=== PATIENT | female | born 1935 | race Caucasian/White ===

== ENCOUNTER → 2017-04-13 15:39 | Outpatient (CLI) | payer MEDICARE ==
[2017-04-13 16:26] LABS: APPEARANCE HAZY (CLEAR); BILIRUBIN NEGATIVE (NEGATIVE); COLOR YELLOW (YELLOW); GLUCOSE NEGATIVE (NEGATIVE); KETONE NEGATIVE (NEGATIVE); NITRITE NEGATIVE (NEGATIVE); PROTEIN TRACE mg/dL (NEGATIVE); UROBILINOGEN NORMAL (NORMAL)
[2017-04-13 16:28] LABS: BACTERIA MODERATE /hpf (NONE SEEN)
== END | disposition home or self-care (01) ==
LOC: D.LABREF 15:39
PROVIDERS: Family Medicine
DX: R41.0 Disorientation, unspecified (principal)